=== PATIENT | female | born 1970 | race American Indian/Alaskan Native ===

== ENCOUNTER 2016-11-25 08:51 | Outpatient (CLI) | payer BC ==
--- NOTE | 2016-11-25 09:45 | Mammography Report ---
RIGHT DIGITAL DIAGNOSTIC MAMMOGRAM : 11/25/16 08:51:00 CLINICAL: Six month follow-up calcifications. COMPARISON:05/10/16 FINDINGS: ML and CC magnification views demonstrate a group of stable punctate and amorphous calcifications at 6 o'clock in a segmental distribution. No associated mass or architectural distortion. IMPRESSION: Stable probably benign calcifications. BI-RADS CATEGORY: 3 -- Probably Benign RECOMMENDATION: 6 month follow-up magnification views. ACR BI-RADS MAMMOGRAPHIC CODES: 0 = Needs additional imaging evaluation; 1 = Negative; 2 = Benign; 3 = Probably benign; 4 = Suspicious; 5 = Malignant; 6 = Known biopsy-proven malignancy COMMENT: 1. Dense breast tissue, i.e., adenosis, fibrocystic changes, etc., may obscure an underlying neoplasm. 2. Approximately 10% of cancers are not detected with mammography. 3. A negative mammography report should not delay biopsy if a clinically suspicious mass is present. COMMENT: Patient follow-up letters are generated by our [employer] application.
== END 2016-11-25 08:52 | disposition home or self-care (01) ==
LOC: SPVWC 08:51
PROVIDERS: ATTEND Family Medicine
DX: R92.1 Mammographic calcification found on diagnostic imaging of breast (principal)
CPT/HCPCS: G0206-RT

== ENCOUNTER 2017-05-12 10:11 | Outpatient (CLI) | payer BC ==
--- NOTE | 2017-05-12 11:07 | Mammography Report ---
BILATERAL DIGITAL DIAGNOSTIC MAMMOGRAM with CAD: 05/12/17 10:11:00 CLINICAL: This exam was ordered as a screening examination but was changed to a diagnostic mammogram because she was due for a six-month followup of right calcifications. COMPARISON:11/25/16 right mammogram and 04/21/16 bilateral screening mammogram. FINDINGS:The breasts are heterogeneously dense, which may obscure small masses. Stable group of punctate and amorphous calcifications at 6 o'clock. No mass, or textural distortion or suspicious calcifications. IMPRESSION: Stable probably benign calcifications.The calcifications have been stable for one year. Recommend a two-year surveillance with followup magnification views of the right breast in six months. BI-RADS CATEGORY: 3 -- Probably Benign RECOMMENDATION: 6 month follow-up magnification views. ACR BI-RADS MAMMOGRAPHIC CODES: 0 = Needs additional imaging evaluation; 1 = Negative; 2 = Benign; 3 = Probably benign; 4 = Suspicious; 5 = Malignant; 6 = Known biopsy-proven malignancy COMMENT: 1. Dense breast tissue, i.e., adenosis, fibrocystic changes, etc., may obscure an underlying neoplasm. 2. Approximately 10% of cancers are not detected with mammography. 3. A negative mammography report should not delay biopsy if a clinically suspicious mass is present. COMMENT: Patient follow-up letters are generated by our [employer] application.
== END 2017-05-12 10:12 | disposition home or self-care (01) ==
LOC: SPVWC 10:11
PROVIDERS: ATTEND Family Medicine
DX: R92.1 Mammographic calcification found on diagnostic imaging of breast (principal)
CPT/HCPCS: 77066; G0204

== ENCOUNTER 2017-11-01 09:44 | Outpatient (CLI) | payer BC ==
--- NOTE | 2017-11-01 10:43 | Mammography Report ---
RIGHT DIGITAL DIAGNOSTIC MAMMOGRAM : 11/01/17 09:44:00 CLINICAL: Six month follow-up calcifications. COMPARISON:05/12/17 and mammograms at six month intervals going back to 04/21/16 FINDINGS:Lateralmedial and CC magnification views demonstrate stable amorphous and punctate calcifications in a segmentaldistribution at 6 o'clock. IMPRESSION: Stable probably benign calcifications. BI-RADS CATEGORY: 3 -- Probably Benign RECOMMENDATION: A bilateral mammogram in six months to complete a two-year followup of right breast calcifications and for routine screening of the left breast. ACR BI-RADS MAMMOGRAPHIC CODES: 0 = Needs additional imaging evaluation; 1 = Negative; 2 = Benign; 3 = Probably benign; 4 = Suspicious; 5 = Malignant; 6 = Known biopsy-proven malignancy COMMENT: 1. Dense breast tissue, i.e., adenosis, fibrocystic changes, etc., may obscure an underlying neoplasm. 2. Approximately 10% of cancers are not detected with mammography. 3. A negative mammography report should not delay biopsy if a clinically suspicious mass is present. COMMENT: Patient follow-up letters are generated by our [employer] application.
== END 2017-11-01 09:45 | disposition home or self-care (01) ==
LOC: SPVWC 09:44
PROVIDERS: ATTEND Family Medicine
DX: R92.1 Mammographic calcification found on diagnostic imaging of breast (principal)

== ENCOUNTER 2019-05-15 09:28 | Outpatient (CLI) | payer BC ==
--- NOTE | 2019-05-16 13:20 | Mammography Report ---
DIGITAL SCREENING MAMMOGRAM WITH CAD, 05/15/2019 INDICATION: Routine screening mammography. TECHNIQUE: Digital bilateral 2D mammography was obtained in the craniocaudal and mediolateral obliq ue projections. This examination was interpreted with the benefit of Computer-Aided Detection analysi s. COMPARISON: 05/14/2018 FINDINGS: Breast Density: The breasts are heterogeneously dense, which may obscure small masses. Right calcifications requiring additional imaging. The calcifications appear to be segmental at 6:00. No associated mass or architectural distortion. There is no evidence of dominant mass, suspicious ca lcifications or architectural distortion in the left breast. IMPRESSION: Right calcifications requiring further workup. Recommend recall for right magnification v iews of calcifications. Follow up recommendation: Special View: Mag Category 0: Incomplete. Needs additional imaging evaluation and/or prior mammograms for comparison. A "normal" or negative report should not discourage follow up or biopsy of a clinically significant f inding. A written summary of these findings will be mailed to the patient. The patient will be entered into a mammography reporting system which will generate a reminder letter for the patient's next appointmen t at the appropriate interval. The [employer] recommends yearly mammograms starting at age 40 and continuing as l jina as a woman is in good health. Breast MRI is recommended for women with an approximate 20-25% or greater lifetime risk of breast cancer, including women with a strong family history of breast or ova halle cancer or who have been treated for Hodgkin's disease. Signer Name: Heath Gomez MD Signed: 05/16/2019 1:15 PM Workstation Name: [id number]
== END 2019-05-15 09:29 | disposition home or self-care (01) ==
LOC: SPVWC 09:28
PROVIDERS: ATTEND Surgery
DX: Z12.31 Encounter for screening mammogram for malignant neoplasm of breast (principal)
CPT/HCPCS: 77067

== ENCOUNTER 2019-06-05 14:46 | Outpatient (CLI) | payer BC ==
--- NOTE | 2019-06-05 15:24 | Mammography Report ---
DIGITAL RIGHT DIAGNOSTIC MAMMOGRAM WITHOUT CAD, WITHOUT TOMOSYNTHESIS 06/05/2019 INDICATION: ABNORMAL MAMMO. Recall to evaluate calcifications. TECHNIQUE: Digital right mammographic imaging was performed. Magnification views were obtained. This examination was interpreted with the benefit of Computer-aided Detection analysis. COMPARISON: 05/15/2019 and 05/14/2018 and 11/01/2017 Breast Density: The breasts are heterogeneously dense, which may obscure small masses. FINDINGS: Segmental amorphous and punctate calcifications at 6:00 are unchanged compared to previous exams. No layering on the lateral view. No mass or architectural distortion. IMPRESSION: Benign calcifications. No mammographic evidence of malignancy. Follow up recommendation: Routine BI-RADS Category 2: Benign. A "normal" or negative report should not discourage follow up or biopsy of a clinically significant f inding. A written summary of these findings will be mailed to the patient. The patient will be entered into a mammography reporting system which will generate a reminder letter for the patient's next appointmen t at the appropriate interval. According to the [employer], yearly mammograms are recommended starting at age 40 and continuing as long as a woman is in good health. Breast MRI is recommended for women with an david roximately 20-25% or greater lifetime risk of breast cancer, including women with a strong family his tory of breast or ovarian cancer and women who have been treated for Hodgkin's disease. Signer Name: Heath Gomez MD Signed: 06/05/2019 3:19 PM Workstation Name: [id number]
== END 2019-06-05 14:47 | disposition home or self-care (01) ==
LOC: SPVWC 14:46
PROVIDERS: ATTEND Family Medicine
DX: R92.8 Other abnormal and inconclusive findings on diagnostic imaging of breast (principal)

== ENCOUNTER 2020-07-29 09:59 | Outpatient (CLI) | payer BC ==
--- NOTE | 2020-07-29 10:52 | Mammography Report ---
DIGITAL SCREENING MAMMOGRAM WITH CAD, 07/29/2020 CLINICAL INFORMATION / INDICATION: Routine screening mammography. TECHNIQUE: Digital bilateral 2D mammography was obtained in the craniocaudal and mediolateral obliqu e projections. This examination was interpreted with the benefit of Computer-Aided Detection analysis . COMPARISON: 06/05/2019, 05/15/2019, 05/14/2018 FINDINGS: Breast Density: The breasts are heterogeneously dense, which may obscure small masses. No dominant mass, suspicious calcifications, or architectural distortion in either breast. Benign-appearing right breast calcifications are unchanged. IMPRESSION: No mammographic evidence of malignancy. Follow up recommendation: Routine yearly BI-RADS Category 2: Benign. A "normal" or negative report should not discourage follow up or biopsy of a clinically significant f inding. A written summary of these findings will be mailed to the patient. The patient will be entered into a mammography reporting system which will generate a reminder letter for the patient's next appointmen t at the appropriate interval. The [employer] recommends yearly mammograms starting at age 40 and continuing as l jina as a woman is in good health. Breast MRI is recommended for women with an approximate 20-25% or greater lifetime risk of breast cancer, including women with a strong family history of breast or ova halle cancer or who have been treated for Hodgkin's disease. Signer Name: Reed Patel MD Signed: 07/29/2020 10:47 AM Workstation Name: [id number]
== END 2020-07-29 10:00 | disposition home or self-care (01) ==
LOC: SPVWC 09:59
PROVIDERS: ATTEND Family Medicine
DX: Z12.31 Encounter for screening mammogram for malignant neoplasm of breast (principal)
CPT/HCPCS: 77067

== ENCOUNTER 2021-08-02 09:52 | Outpatient (CLI) | payer BC ==
--- NOTE | 2021-08-02 10:44 | Mammography Report ---
DIGITAL SCREENING MAMMOGRAM WITH CAD, 08/02/2021 CLINICAL INFORMATION / INDICATION: Routine screening mammography. SCREENING MAMMO TECHNIQUE: Digital bilateral 2D mammography was obtained in the craniocaudal and mediolateral obliqu e projections. This examination was interpreted with the benefit of Computer-Aided Detection analysis . COMPARISON: July 29, 2020, May 15, 2019, May 14, 2018 FINDINGS: Breast Density: The breasts are heterogeneously dense, which may obscure small masses. No dominant mass, suspicious calcifications, or architectural distortion in either breast. IMPRESSION: No mammographic evidence of malignancy. Follow up recommendation: Routine yearly BI-RADS Category 1: NEGATIVE A "normal" or negative report should not discourage follow up or biopsy of a clinically significant f inding. A written summary of these findings will be mailed to the patient. The patient will be entered into a mammography reporting system which will generate a reminder letter for the patient's next appointmen t at the appropriate interval. The [employer] recommends yearly mammograms starting at age 40 and continuing as l jina as a woman is in good health. Breast MRI is recommended for women with an approximate 20-25% or greater lifetime risk of breast cancer, including women with a strong family history of breast or ova halle cancer or who have been treated for Hodgkin's disease. Signer Name: Venkat Lawson DO Signed: 08/02/2021 10:39 AM Workstation Name: [id number]
== END 2021-08-02 09:53 | disposition home or self-care (01) ==
LOC: SPVWC 09:52
PROVIDERS: ATTEND Physician Assistant
DX: Z12.31 Encounter for screening mammogram for malignant neoplasm of breast (principal); N64.89 Other specified disorders of breast
CPT/HCPCS: 77067